=== PATIENT | male | born 1985 | race Caucasian/White ===

== ENCOUNTER 2018-07-21 11:39 | Emergency (ER) | payer SELFPAY ==
--- NOTE | 2018-07-21 13:45 | CT ---
NONCONTRAST CT HEAD: 07/21/18 HISTORY: Injury after hitting head cutting tree limbs last night. Headache. COMPARISON: None available. FINDINGS: There is no evidence of a hemorrhage, acute infarction, mass effect or midline shift. Ventricular sys tem is normal in size, shape and position. The visualized paranasal sinuses and mastoid air cells are clear. No calvarial fracture is seen. IMPRESSION: No acute intracranial abnormality is demonstrated. POS: [facility]
--- NOTE | 2018-07-21 13:48 | CT ---
NONCONTRAST CT CERVICAL SPINE: 07/21/18 HISTORY: Neck injury after hitting head while cutting tree limbs last night. TECHNIQUE: Contiguous axial CT images are obtained through the cervical spine from the skull base to the level o f the T2 vertebral body. Sagittal and coronal reformatted images are provided. There is mild straightening of the normal cervical lordotic curvature. The vertebral body heights and intervertebral disc spaces are within normal limits. Prevertebral soft tissues are within normal bennett its. The visualized lung apices are clear. IMPRESSION: No fracture or subluxation involving the cervical spine. POS: [id number]
== END 2018-07-21 13:07 | disposition home or self-care (01) ==
LOC: ERS 11:39
DX: S06.0X0A Concussion without loss of consciousness, initial encounter (principal); W20.8XXA Other cause of strike by thrown, projected or falling object, initial encounter
CPT/HCPCS: 70450; 72125